=== PATIENT | female | born 1995 | race Two or more races ===

== ENCOUNTER → 2025-07-23 | Outpatient (CLI) | payer MEDICAID, SELFPAY ==
--- NOTE | 2025-07-23 | XR_ITS ---
Examination: Pelvic ultrasound, transabdominal, complete Technique: Transabdominal ultrasound of the pelvis performed using grayscale imaging Date and time of exam: July 23, 2025, 12:20 p.m. INDICATIONS: Pelvic pain beginning 3 weeks ago FINDINGS: Uterus 9.1 cm endometrial stripe 1.2 cm No uterine mass or intrauterine gestation. Right ovary 3.2 cm arterial flow Left ovary 3.2 cm arterial flow IMPRESSION: No uterine mass or intrauterine gestation
--- NOTE | 2025-07-23 | XR_ITS ---
Examination: Transvaginal ultrasound of the pelvis, complete Technique: Transvaginal sonographic images pelvis performed using gage scale imaging Exam date and time: July 23, 2025, 1217 hours INDICATIONS: Pelvic pain beginning 3 days ago. FINDINGS: Uterus 7.3 cm endometrial stripe 1.2 cm No uterine mass or intrauterine gestation Right ovary 4.2 cm arterial flow Left ovary 3.3 cm arterial flow IMPRESSION: Negative study.
== END | disposition home or self-care (01) ==
PROVIDERS: PCP Nurse Practitioner Family; Referring Provider Nurse Practitioner Family; Visit Provider Nurse Practitioner Family
DX: R10.30 Lower abdominal pain, unspecified (principal)
CPT/HCPCS: 76830; 76856

== ENCOUNTER 2025-08-31 20:12 | Emergency (ER) | payer MEDICAID, SELFPAY ==
[2025-08-31 20:17] VITALS: BMI 27.2
[2025-08-31 20:46] VITALS: BP 121/83; PULSE 84; RESP 18; TEMP 37; O2SAT 99
--- NOTE | 2025-08-31 21:40 | EDNOTE_ITS ---
ED Ear RME/HPI General Chief complaint: Ear Stated complaint: SHASTA. EAR PAIN, SNEED RADIATING TO SHOULDERS, CHILLS Time Seen by Provider: 08/31/25 20:56 Arrival date/time: 08/31/25 20:12 30F with no significant PMH presents to ED with 1 month of bilateral ear pain, SNEED, and facial pain. Patient has taken a Z-miriam w/o relief. Patient denies sore through and cough. Patient also denies foul smell in nose and nasal discharge. Limitations: no limitations Related Data Home Medications ?Medication ?Instructions ?Recorded ?Confirmed Vitamin * 1 tab PO QDAY SUPPL EMENT 10/13/17 10/20/17 #0 tabs ferrous sulfate 325 mg (65 mg 325 mg PO BIDWM ANEMIA # 0 tabs 10/13/17 10/20/17 iron) tablet (Feosol) Previous Rx's ?Medication ?Instructions ?Recorded acetaminophen 300 mg-codeine 30 mg 1 tab PO Q6H PRN pa in #15 tabs 09/27/23 tablet ibuprofen 600 mg tablet 600 mg PO Q6H PRN pain #30 t abs 09/27/23 prednisone 20 mg tablet 20 mg PO BID 7 days #14 tabs 08/31/25 Allergies Allergy/AdvReac Type Severity Reaction Status Date / Time Penicillins Allergy Intermediate Rash Verified 08/31/25 20:13 Review of Systems Review of Systems Systems Reviewed: All systems reviewed, normal except as documented Constitutional Constitutional: Reports as per HPI and Reports headache(s) ENT Ears, Nose, Mouth, and Throat: Reports as per HPI, Reports otalgia and Reports headache(s) Neurologic Neurologic: Reports headache(s) Past Medical History Social History SMOKING STATUS: Never smoker SUBSTANCE USE: does not use ED Exam General Limitations: Present no limitations General appearance: Present alert and in no apparent distress Head Head exam: Present atraumatic ENT ENT exam: Present normal oropharynx and mucous membranes moist Expanded ENT Exam Nose exam: Present sinus tenderness Neck Neck exam: Present normal inspection, full ROM and trachea midline Chest Chest inspection: Present normal inspection and symmetric chest wall rise Neurological Exam Neurological exam: Present alert and oriented X3 Psychiatric Psychiatric exam: Present normal affect and normal mood Skin Skin exam: Present warm, dry, intact and normal color Course Quality Measures none Orders Category Date Time Status dexAMETHasone INJ [Decadron Inj] Med 08/31/25 20:56 Discontinued 10 mg PO X1 ONE Vital Signs Vital signs: Vital Signs Temperature 98.6 F 08/31/25 20:46 Pulse Rate 84 08/31/25 20:46 Respiratory Rate 18 08/31/25 20:46 Blood Pressure 121/83 08/31/25 20:46 Pulse Oximetry (%) 99 08/31/25 20:46 Oxygen Delivery Method Room Air 08/31/25 20:46 O2 at 99% on RA and WNLs Ear MDM Narrative MDM Narrative:: 30F with no significant PMH presents to ED with 1 month of bilateral ear pain, SNEED, and facial pain. Patient has taken a Z-miriam w/o relief. Patient denies sore through and cough. Patient also denies foul smell in nose and nasal discharge. Physical exam reveals clear ENT and oropharynx. Sinus tenderness. Patient is afebrile, calm, and alert. Meds and prevocational/rehabilitation counselor given. Patient data External records reviewed:: [facility] previous records Clinical information provided by:: patient Social determinants that could affect healthcare access:: none Patient has the following chronic illnesses:: none How is presenting disease/condition affected by chronic disease/condition?: no chronic disease Evaluation data The following diagnostics were reviewed and interpreted by me:: other (specify) (none) Lab and/or radiology exams considered but not ordered:: not ordered Interpretation Summary: n/a Medications / Prescriptions Medications or Prescriptions considered but not ordered:: ordered Medication administrations:: Medication Administration History Discontinued Medications Dexamethasone Sodium Phosphate (Dexamethasone Sod Phos Inj 10 Mg/Ml Vial) 10 mg PO X1 ONE Stop: 08/31/25 20:57 Last Admin: 08/31/25 21:20 Dose: 10 mg Documented By: BD above Consultations Consultation(s) initiated? (list below): No Diagnosis Ear Differential Diagnosis: otitis externa, otitis media, foreign body in ear, ruptured TM, cerumen impaction and other (sinusitis) Most likely diagnosis given after review of the tests above:: sinusitis Admission Indicated Admission indicated?: not indicated Admission Request Was there a request for admission?: No Disposition Plan Disposition Plan: Discharge Discharge Attestation Discharge Attestation: The patient and all family members were given an opportunity to ask questions and understood the discharge instructions. Discharge instructions specifically effects, indications for sooner follow up or return to the emergency department, and the expected course of current diagnosis. Patient condition: Stable Discharge Plan Plan Patient Disposition: HOME (Self Care) Discharge Disposition comment: Stable Prescriptions/Referrals Prescriptions/Med Rec: New prednisone 20 mg tablet 20 mg PO BID 7 Days Qty: 14 0RF No Action ferrous sulfate [Feosol] 1 TAB tablet 325 mg PO BIDWM Qty: 0 Vitamin * 1 EACH tablet 1 tab PO QDAY Qty: 0 ibuprofen 600 mg tablet 600 mg PO Q6H PRN (Reason: pain) Qty: 30 0RF acetaminophen-codeine 300-30 mg tablet 1 tab PO Q6H PRN (Reason: pain) Qty: 15 0RF Problem List Clinical Impression: Sinusitis Patient/Caregiver Discharge Instructions Education Materials: ED Sinusitis (No Antibiotics) Additional Instructions: Please follow-up with PCP within 24-48 hours and return immediately if symptoms worsen. If problem persists, can get referral to ENT. Print Language: Latvian Stand Alone Forms: Patient Portal Info Letter ADA/JAMES Supervising Physician ADA/JAMES Supervising Physician: Dr. Esparza
== END 2025-08-31 21:35 | disposition home or self-care (01) ==
LOC: SERX 21:31
PROVIDERS: Emergency Provider Emergency Medicine; PCP Nurse Practitioner Family
DX: J32.9 Chronic sinusitis, unspecified (principal)
CPT/HCPCS: 99281; J1100